=== PATIENT | male | born 1960 | race Two or more races ===

== ENCOUNTER 2022-10-31 21:13 | Emergency (ER) | payer OTHER ==
[~2022-10-31] VITALS: Ht 177.8 cm; Wt 69.4 kg
[~2022-10-31 21:13] MED LIST: ACETAMINOPHEN500 M2 PO; ATORVASTATIN CA20 MG PO; COZAAR25 MG PO; GORDON'S VITE A75 GM PO; NEURONTIN300 MG PO; OMEPRAZOLE20 MG PO; PANTOPRAZOLE SO40 MG
== END 2022-11-01 14:35 | disposition home or self-care (01) ==
LOC: ER 21:13
DX: R10.13 Epigastric pain (principal); R11.10 Vomiting, unspecified; I10 Essential (primary) hypertension; E86.0 Dehydration